=== PATIENT | male | born 1965 | race Two or more races ===

== ENCOUNTER 2017-05-30 10:10 | Emergency (ER) | payer OTHER ==
[~2017-05-30] VITALS: Ht 172.7 cm; Wt 79.4 kg
[2017-05-30 10:19] VITALS: BP 125/82
[2017-05-30] MEDS ORDERED: KEFLEX500 MG ORAL (11:03)
[2017-05-30] MEDS ORDERED: BACITRACIN ZIN1 EACH TOPIC (11:03)
[2017-05-30] MEDS ORDERED: Cephalexin 500mg cap ORAL ONE (11:15)
[2017-05-30] MEDS ORDERED: Tetanus/Diptheria/Pertussis Vaccine 0.5ml Syr IM ONE (11:15)
[2017-05-30] MEDS ORDERED: Bacitracin Oint UD TOPIC ONE (11:15)
[2017-05-30 11:29] VITALS: BP 125/82
--- NOTE | 2017-05-30 17:05 | Emergency Room Report ---
History of Present Illness General Chief Complaint: Laceration Source: Patient Present Illness HPI Patient is a 52-year-old male who presented after increased pain to his hand. Patient stated that he had cut his hand with a putty knife. The patient stated that this occurred yesterday. He presented after increased pain he states he had had a tetanus vaccine but wasn't sure as to what the date was. The patient any numbness or tingling. Allergies: Coded Allergies: No Known Allergies (Unverified , 05/30/17) Patient History Reviewed Nursing Documentation: PMH: Agreed, PSxH: Agreed Nursing Documentation-PM Past Medical History: No History, Except For Hx Cardiac Problems: No - hyperlipidemia Hx Hypertension: Yes Hx Diabetes: Yes Review of Systems All Other Systems: negative except mentioned in HPI Physical Exam Vital Signs Date Time Temp Pulse Resp B/P (MAP) Pulse Ox O2 Delivery O2 Flow Rate FiO2 05/30/17 10:19 98.2 76 16 125/82 99 Room Air General Appearance: well appearing, no apparent distress, GCS 15 Head: normocephalic, atraumatic ENT: hearing grossly normal, normal voice Neck: full range of motion, supple Respiratory: no respiratory distress, speaking full sentences Cardiovascular #1: normal inspection, regular rate, rhythm, no gallop Musculoskeletal: normal inspection, back normal, gait/station normal, no calf tenderness, other - laceration to finger 1 cm no active bleeding Neurologic: normal inspection, alert, oriented x3, responsive, fuel cell builder III-XII nml as tested, normal gait Psychiatric: mood/affect normal Skin: no rash Medical Decision Making Diagnostic Impression: Primary Impression: Laceration ER Course Patient presented for laceration. Differential diagnoses included foreign body , nerve injury, arterial injury among others. The patient does not appear to have a laceration amenable to suturing. Wound is likely to get infected if the wound was closed. wound was cleansed and antibiotic ointment was applied. Patient was given prescriptions for oral antibiotics. Patient's tetanus was updated. He is placed on light duty. Patient was advised to followup with his worker's compensation physician Last Vital Signs Date Time Temp Pulse Resp B/P (MAP) Pulse Ox O2 Delivery O2 Flow Rate FiO2 05/30/17 11:29 98.2 81 19 125/82 100 Room Air Status: improved Disposition: HOME, SELF-CARE Condition: Stable Scripts Bacitracin Zinc* (BACITRACIN ZINC*) 1 Each Packet 1 APPLIC TOPIC THREE TIMES A DAY, #30 PACKET Prov: Avel Estes 05/30/17 Cephalexin* (KEFLEX*) 500 Mg Capsule 500 MG ORAL Q6H, #28 CAP 0 Refills Prov: Avel Estes 05/30/17 Patient Instructions: Laceration Care, Adult Avel Estes May 30, 2017 17:05
== END 2017-05-30 11:30 | disposition home or self-care (01) ==
LOC: EMR 10:50
DX: S61.210A Laceration without foreign body of right index finger without damage to nail, initial encounter (principal); W26.0XXA Contact with knife, initial encounter; Y93.9 Activity, unspecified; Y92.9 Unspecified place or not applicable; Z23 Encounter for immunization; I10 Essential (primary) hypertension; E11.9 Type 2 diabetes mellitus without complications
CPT/HCPCS: 90471; 90715; 99284